=== PATIENT | female | born 1955 | race Caucasian/White ===

== ENCOUNTER 2017-01-08 15:24 | Emergency (ER) | payer MEDICAID, MEDICARE ==
[~2017-01-08] VITALS: Ht 157.5 cm; Wt 61.2 kg
[~2017-01-08 15:24] MED LIST: CEPH-37 PO; CITA-77 PO; DIVA250T51 PO; LORA2TAB89 PO; METF-372 PO; MORP30TA; NITR-52 PO; OLAN10IN PO
[2017-01-08 16:00] VITALS: BP 120/79
[2017-01-08 17:11] LABS: Basophils # (auto) 0 uL; Basophils % (auto) 0.3 % (0.0-2.0); CONDITION Y; Eosinophils # (auto) 0 uL; Eosinophils % (auto) 0.3 % (0.0-7.0); Hematocrit 36.8 % (36.0-46.0); Hemoglobin 12.5 g/dL (12.2-16.2); Lymphocytes # (auto) 1.2 uL; Lymphocytes % (auto) 18.1 % (10.0-50.0); Mean Corpuscular Hemoglobin 33.7 pg (28.0-32.0); Mean Corpuscular Hgb Conc. 33.8 g/dL (32.0-36.0); Mean Corpuscular Volume 99.7 fL (80.0-100.0); Mean Platelet Volume 9.2 fL (7.4-10.4); Monocytes # (auto) 0.3 uL; Monocytes % (auto) 3.9 % (0.0-12.0); Neutrophils # (auto) 4.9 uL; Neutrophils % (auto) 77.4 % (37.0-80.0); Platelet Count (auto) 249 10^3/uL (140-450); Red Cell Distribution Width 14.2 % (11.6-16.0); White Blood Cell 6.4 10^3/uL (4.4-10.8)
[2017-01-08 17:33] LABS: Albumin 3.5 g/dL (3.4-5.0); Anion Gap 11 (5-15); Blood Urea Nitrogen 7 mg/dL (7-18); Calcium 8.7 mg/dL (8.5-10.1); Carbon Dioxide 26 mmol/L (21-32); Chloride 101 mmol/L (98-107); GFR African American 149 mL/min; GFR Non-African American 123 mL/min; Glucose 313 mg/dL (74-106); Potassium 3.9 mmol/L (3.5-5.1); Sodium 138 mmol/L (136-145)
[2017-01-08 17:46] LABS: Alkaline Phosphatase 119 U/L (45-117); Aspartate Aminotransferase 39 U/L (15-37); Bilirubin, Total 0.5 mg/dL (0.2-1.0)
== END 2017-01-08 18:21 | disposition left against medical advice (07) ==
LOC: ER 15:29
DX: R07.89 Other chest pain (principal); Z53.21 Procedure and treatment not carried out due to patient leaving prior to being seen by health care provider
CPT/HCPCS: 36415; 71010; 80053; 84484; 85025; 93005

== ENCOUNTER 2017-01-14 10:23 | Inpatient (IN) | payer MEDICARE ==
[~2017-01-14] VITALS: Ht 152.4 cm; Wt 58.0 kg
[2017-01-14] MEDS ORDERED: SODIUM CHLORIDE 0.9% 1,000 ML IVB ONE (11:09)
[2017-01-14 11:47] LABS: Basophils # (auto) 0 uL; Basophils % (auto) 0.2 % (0.0-2.0); CONDITION Y; Eosinophils # (auto) 0 uL; Eosinophils % (auto) 0.1 % (0.0-7.0); Hematocrit 45.4 % (36.0-46.0); Hemoglobin 15.2 g/dL (12.2-16.2); Lymphocytes # (auto) 1.7 uL; Lymphocytes % (auto) 21.6 % (10.0-50.0); Mean Corpuscular Hemoglobin 33.6 pg (28.0-32.0); Mean Corpuscular Hgb Conc. 33.6 g/dL (32.0-36.0); Mean Corpuscular Volume 99.9 fL (80.0-100.0); Mean Platelet Volume 8.7 fL (7.4-10.4); Monocytes # (auto) 0.3 uL; Monocytes % (auto) 3.8 % (0.0-12.0); Neutrophils # (auto) 5.9 uL; Neutrophils % (auto) 74.3 % (37.0-80.0); Platelet Count (auto) 217 10^3/uL (140-450); Red Cell Distribution Width 13.8 % (11.6-16.0); White Blood Cell 7.9 10^3/uL (4.4-10.8)
[2017-01-14 12:11] LABS: INR 1.01 (0.9-1.15); Partial Thromboplastin Time 26.1 sec (22.64-33.71)
[2017-01-14 12:13] LABS: Albumin 3.8 g/dL (3.4-5.0); Alkaline Phosphatase 114 U/L (45-117); Anion Gap 12 (5-15); Aspartate Aminotransferase 26 U/L (15-37); BUN/Creatinine Ratio 15.7; Bilirubin, Total 0.9 mg/dL (0.2-1.0); Blood Urea Nitrogen 8 mg/dL (7-18); Calcium 8.9 mg/dL (8.5-10.1); Carbon Dioxide 24 mmol/L (21-32); Chloride 100 mmol/L (98-107); GFR African American 159 mL/min; GFR Non-African American 131 mL/min; Glucose 242 mg/dL (74-106); Magnesium 1.8 mg/dL (1.6-2.6); Sodium 136 mmol/L (136-145); Total Protein 9.3 g/dL (6.4-8.2)
[2017-01-14 12:20] LABS: Potassium 2.8 mmol/L (3.5-5.1)
[2017-01-14] MEDS ORDERED: POTASSIUM CHL 20 Meq TABLET PO ONE ×3 (13:00→14:30)
[2017-01-14] MEDS ORDERED: ONDANSETRON HCL 4 MG/2 ML VIAL IV PRN (14:15)
[2017-01-14] MEDS ORDERED: MORPHINE SULF INJ 2 MG/ML SYRINGE 1ML IV PRN (14:15)
[2017-01-14] MEDS ORDERED: cefTRIAXone 1GM/50ML D5W 50 ML IV ONE (14:15)
[2017-01-14] MEDS ORDERED: NITROGLYCERIN 0.4 MG SL TAB SL PRN (14:15)
[2017-01-14] MEDS: SODIUM CHLORIDE 0.9% 1,000 ML IV SCH (14:23)
[2017-01-14] MEDS ORDERED: DEXTROSE (50%) 50ML SYRG IV PRN (14:30)
[2017-01-14] MEDS ORDERED: MULTIPLE VITAMINS W/ MINERALS TAB PO ONE (14:30)
[2017-01-14] MEDS: HYDROcodone-ACET 5/325MG TAB PO PRN ×2 (14:57→20:12)
[2017-01-14] MEDS: ACCU-CHEK COMFORT CURVE STRIP VI SCH ×2 (17:15→22:06)
[2017-01-14] MEDS: InsuLIN REG 1unit/0.01ml Soln (100units/ml) SC SCH ×2 (17:15→21:46)
[2017-01-14 20:30] VITALS: BP 155/90
[2017-01-14] MEDS: LORazepam 0.5 MG TAB PO PRN (21:28)
[2017-01-14] MEDS: INSULIN DETEMIR(LEVEMIR) 1unit/0.01ml Soln (100units/ml) SC SCH (21:47)
[2017-01-14 23:06] VITALS: BP 155/90
[2017-01-15] VITALS (7 sets, daily range): BP systolic 125–146; BP diastolic 74–95
[2017-01-15] MEDS ORDERED: INSLISPI SC (01:11)
[2017-01-15] MEDS ORDERED: INSLANTI SC (01:11)
[2017-01-15] MEDS ORDERED: TEMA30CA5 PO (01:11)
[2017-01-15] MEDS ORDERED: LAMO25TA2 PO (01:11)
[2017-01-15] MEDS: HYDROcodone-ACET 5/325MG TAB PO PRN ×3 (01:30→20:21)
[2017-01-15 05:45] LABS: BUN/Creatinine Ratio 16.7; Calcium 7.9 mg/dL (8.5-10.1); Magnesium 1.6 mg/dL (1.6-2.6); Potassium 3.5 mmol/L (3.5-5.1)
[2017-01-15] MEDS: ACCU-CHEK COMFORT CURVE STRIP VI SCH ×4 (06:18→23:50)
[2017-01-15] MEDS: InsuLIN REG 1unit/0.01ml Soln (100units/ml) SC SCH ×4 (06:24→23:49)
[2017-01-15] MEDS: INSULIN DETEMIR(LEVEMIR) 1unit/0.01ml Soln (100units/ml) SC SCH ×2 (06:25→23:50)
[2017-01-15] MEDS: SODIUM CHLORIDE 0.9% 1,000 ML IV SCH (06:55)
[2017-01-15 08:31] LABS: Urine Bilirubin Negative (Negative); Urine Blood 3+ /uL (Negative); Urine Color Yellow (Yellow); Urine Glucose Normal (Normal); Urine Ketone Negative (Negative); Urine Mucus FEW (None Seen); Urine Nitrite Negative (Negative); Urine RBC 313 /hpf (0 - 4); Urine Squamous Epithelial Cell FEW /hpf (<5); Urine Urobilinogen Normal (Negative); Urine WBC Clumps PRESENT /hpf (None Seen); Urine pH 7.5 (5.0-8.0)
[2017-01-15] MEDS: OLANZapine 5 MG TAB PO SCH (09:45)
[2017-01-15] MEDS: CITALOPRAM HYDROBR 20 MG TAB PO SCH (09:45)
[2017-01-15] MEDS: cefTRIAXone 1GM/50ML D5W 50 ML IV SCH (09:45)
[2017-01-15] MEDS: MULTIPLE VITAMINS W/ MINERALS TAB PO SCH (09:45)
[2017-01-15] MEDS ORDERED: KETOROLAC TROMETH 30 MG/ML 1ML VIAL IV ONE (12:15)
[2017-01-15] MEDS: MAGNESIUM SULFATE 1GM/100ML 100 ML IV SCH ×2 (13:03→14:21)
[2017-01-15] MEDS: LORazepam 0.5 MG TAB PO PRN (21:25)
[2017-01-15] MEDS: MORPHINE SULF INJ 2 MG/ML SYRINGE 1ML IV PRN (22:08)
[2017-01-16] MEDS: MORPHINE SULF INJ 2 MG/ML SYRINGE 1ML IV PRN ×2 (04:17→10:33)
[2017-01-16] MEDS: SODIUM CHLORIDE 0.9% 1,000 ML IV SCH ×2 (04:18→16:15)
[2017-01-16 05:00] VITALS: BP 128/85
[2017-01-16] MEDS: InsuLIN REG 1unit/0.01ml Soln (100units/ml) SC SCH ×4 (06:40→21:39)
[2017-01-16] MEDS: INSULIN DETEMIR(LEVEMIR) 1unit/0.01ml Soln (100units/ml) SC SCH ×2 (06:41→21:38)
[2017-01-16] MEDS: ACCU-CHEK COMFORT CURVE STRIP VI SCH ×4 (07:27→21:38)
[2017-01-16 09:00] VITALS: BP 125/82
[2017-01-16] MEDS: cefTRIAXone 1GM/50ML D5W 50 ML IV SCH (10:11)
[2017-01-16] MEDS: MULTIPLE VITAMINS W/ MINERALS TAB PO SCH (10:12)
[2017-01-16] MEDS: CITALOPRAM HYDROBR 20 MG TAB PO SCH (10:12)
[2017-01-16] MEDS: OLANZapine 5 MG TAB PO SCH (10:12)
[2017-01-16 12:54] VITALS: BP 145/91
[2017-01-16] MEDS: LORazepam 0.5 MG TAB PO PRN (16:13)
[2017-01-16 22:00] VITALS: BP 152/83
[2017-01-17] MEDS: MORPHINE SULF INJ 2 MG/ML SYRINGE 1ML IV PRN ×2 (01:22→09:16)
[2017-01-17 05:36] VITALS: BP 158/87
[2017-01-17] MEDS: HYDROcodone-ACET 5/325MG TAB PO PRN ×2 (05:58→15:19)
[2017-01-17] MEDS: ACCU-CHEK COMFORT CURVE STRIP VI SCH ×3 (06:45→17:00)
[2017-01-17] MEDS: INSULIN DETEMIR(LEVEMIR) 1unit/0.01ml Soln (100units/ml) SC SCH (07:25)
[2017-01-17] MEDS: InsuLIN REG 1unit/0.01ml Soln (100units/ml) SC SCH ×3 (07:26→17:00)
[2017-01-17 09:00] VITALS: BP 153/88
[2017-01-17] MEDS: CITALOPRAM HYDROBR 20 MG TAB PO SCH (09:16)
[2017-01-17] MEDS: cefTRIAXone 1GM/50ML D5W 50 ML IV SCH (09:16)
[2017-01-17] MEDS: OLANZapine 5 MG TAB PO SCH (09:16)
[2017-01-17] MEDS: MULTIPLE VITAMINS W/ MINERALS TAB PO SCH (09:16)
[2017-01-17] MEDS: SODIUM CHLORIDE 0.9% 1,000 ML IV SCH (09:19)
[2017-01-17] MEDS: LORazepam 0.5 MG TAB PO PRN (11:42)
[2017-01-17 12:25] VITALS: BP 139/78
== END 2017-01-17 17:38 | DRG 638 ==
LOC: ER 10:23 → EDBD 10:23 → TELE 10:24 → TELE-WESTW 20:22 → WEST WING 01-15 15:48
PROVIDERS: ADMIT Internal Medicine; ATTEND Internal Medicine
DX: E11.65 Type 2 diabetes mellitus with hyperglycemia (principal); N39.0 Urinary tract infection, site not specified; N32.1 Vesicointestinal fistula; I10 Essential (primary) hypertension; E87.6 Hypokalemia; F14.10 Cocaine abuse, uncomplicated; J44.9 Chronic obstructive pulmonary disease, unspecified; F17.210 Nicotine dependence, cigarettes, uncomplicated; F20.9 Schizophrenia, unspecified; F31.9 Bipolar disorder, unspecified; M17.11 Unilateral primary osteoarthritis, right knee; F15.10 Other stimulant abuse, uncomplicated; Z90.49 Acquired absence of other specified parts of digestive tract; Z59.0 Homelessness; Z93.3 Colostomy status; Z80.9 Family history of malignant neoplasm, unspecified
CPT/HCPCS: 36415; 71010; 73560; 74176; 80048; 80053; 80307; 81001; 82962; 83036; 83605; 83735; 84484; 85025; 85610; 85730; 87040; 87081; 87086; 93005; 94761; 96361; 96365; 97163; J0696; J1815; J1885

== ENCOUNTER 2017-01-28 14:59 | Emergency (ER) | payer MEDICARE, MEDICAID ==
[~2017-01-28] VITALS: Ht 157.5 cm; Wt 68.0 kg
[~2017-01-28 14:59] MED LIST changes: -CEPH-37 PO; -DIVA250T51 PO; +INSLANTI SC; +INSLISPI SC; +LAMO25TA2 PO; -METF-372 PO; -MORP30TA; -NITR-52 PO; +TEMA30CA5 PO
[2017-01-28 16:00] LABS: Basophils # (auto) 0 uL; Basophils % (auto) 0.4 % (0.0-2.0); Eosinophils # (auto) 0.1 uL; Eosinophils % (auto) 1.2 % (0.0-7.0); Hematocrit 33.9 % (36.0-46.0); Hemoglobin 11.3 g/dL (12.2-16.2); Lymphocytes # (auto) 1.4 uL; Lymphocytes % (auto) 28.1 % (10.0-50.0); Mean Corpuscular Hemoglobin 33.7 pg (28.0-32.0); Mean Corpuscular Hgb Conc. 33.3 g/dL (32.0-36.0); Mean Platelet Volume 8.6 fL (6.9-10.8); Monocytes # (auto) 0.4 uL; Monocytes % (auto) 8.1 % (0.0-12.0); Neutrophils # (auto) 3.1 uL; Neutrophils % (auto) 62.2 % (37.0-80.0); Nucleated Red Blood Cells % 0.1 %; Platelet Count (auto) 204 10^3/uL (140-450); Red Cell Distribution Width 13.8 % (11.8-14.3); White Blood Cell 4.9 10^3/uL (4.4-10.8)
[2017-01-28 16:12] LABS: Albumin 2.9 g/dL (3.4-5.0); Anion Gap 8 (5-15); Blood Urea Nitrogen 9 mg/dL (7-18); Calcium 8.7 mg/dL (8.5-10.1); Carbon Dioxide 28 mmol/L (21-32); Chloride 99 mmol/L (98-107); Glucose 320 mg/dL (74-106); Potassium 4.6 mmol/L (3.5-5.1); Sodium 135 mmol/L (136-145)
[2017-01-28 16:13] LABS: Acetaminophen < 2.0 ug/mL (10-30); Salicylate 2.1 mg/dL (2.8-20.0)
[2017-01-28 16:15] LABS: Aspartate Aminotransferase 35 U/L (15-37); BUN/Creatinine Ratio 15.5; GFR African American 137 mL/min; GFR Non-African American 113 mL/min
[2017-01-28 16:24] VITALS: BP 120/74
[2017-01-28 16:30] LABS: Alkaline Phosphatase 199 U/L (45-117); Bilirubin, Total 0.2 mg/dL (0.2-1.0); Total Protein 7.4 g/dL (6.4-8.2)
== END 2017-01-28 16:59 | disposition home or self-care (01) ==
LOC: ER 14:59 → EDBD 14:59 → ER 16:59
DX: E11.65 Type 2 diabetes mellitus with hyperglycemia (principal); M19.90 Unspecified osteoarthritis, unspecified site; I10 Essential (primary) hypertension; F17.210 Nicotine dependence, cigarettes, uncomplicated; Z59.0 Homelessness; Z90.49 Acquired absence of other specified parts of digestive tract
CPT/HCPCS: 36415; 73562; 80053; 80320; 80329; 84484; 85025; 93005

== ENCOUNTER 2017-01-28 23:30 | Emergency (ER) | payer MEDICAID, MEDICARE ==
[~2017-01-28] VITALS: Ht 152.4 cm; Wt 59.0 kg
[2017-01-29 03:40] VITALS: BP 130/70
[2017-01-29] MEDS ORDERED: IBUPROFEN 600 MG TAB PO ONE (04:15)
== END 2017-01-29 04:24 | disposition home or self-care (01) ==
LOC: ER 23:32
DX: S80.12XA Contusion of left lower leg, initial encounter (principal); F17.210 Nicotine dependence, cigarettes, uncomplicated; Z59.0 Homelessness; M19.90 Unspecified osteoarthritis, unspecified site; E11.9 Type 2 diabetes mellitus without complications; Z79.899 Other long term (current) drug therapy; Z90.49 Acquired absence of other specified parts of digestive tract; W05.0XXA Fall from non-moving wheelchair, initial encounter; Y93.89 Activity, other specified; Y92.89 Other specified places as the place of occurrence of the external cause; Y99.8 Other external cause status

== ENCOUNTER 2017-01-29 17:46 | Emergency (ER) | payer MEDICARE ==
[~2017-01-29] VITALS: Ht 152.4 cm; Wt 65.8 kg
[2017-01-29 17:53] VITALS: BP 126/75
== END 2017-01-30 01:45 | disposition left against medical advice (07) ==
LOC: ER 17:46 → EDBD 17:46 → ER 01-30 01:45
DX: R73.9 Hyperglycemia, unspecified (principal); Z53.21 Procedure and treatment not carried out due to patient leaving prior to being seen by health care provider

== ENCOUNTER 2017-02-25 21:34 | Emergency (ER) | payer MEDICARE ==
[~2017-02-25] VITALS: Ht 167.6 cm; Wt 68.0 kg
[2017-02-25 21:53] VITALS: BP 114/69
[2017-02-25 22:51] LABS: Basophils # (auto) 0 uL; Basophils % (auto) 0.3 % (0.0-2.0); Eosinophils # (auto) 0.1 uL; Eosinophils % (auto) 1.7 % (0.0-7.0); Hematocrit 34.6 % (36.0-46.0); Hemoglobin 11.7 g/dL (12.2-16.2); Lymphocytes # (auto) 2.1 uL; Lymphocytes % (auto) 42.2 % (10.0-50.0); Mean Corpuscular Hemoglobin 32.8 pg (28.0-32.0); Mean Corpuscular Hgb Conc. 33.9 g/dL (32.0-36.0); Mean Corpuscular Volume 96.5 fL (80.0-100.0); Mean Platelet Volume 7.1 fL (6.9-10.8); Monocytes # (auto) 0.4 uL; Monocytes % (auto) 7.6 % (0.0-12.0); Neutrophils # (auto) 2.4 uL; Neutrophils % (auto) 48.2 % (37.0-80.0); Nucleated Red Blood Cells % 0.1 %; Platelet Count (auto) 188 10^3/uL (140-450); Red Cell Distribution Width 13.6 % (11.8-14.3); White Blood Cell 5.1 10^3/uL (4.4-10.8)
[2017-02-25 23:10] LABS: Albumin 3.3 g/dL (3.4-5.0); Anion Gap 8 (5-15); Aspartate Aminotransferase 25 U/L (15-37); BUN/Creatinine Ratio 33.3; Blood Urea Nitrogen 19 mg/dL (7-18); Calcium 8.2 mg/dL (8.5-10.1); Carbon Dioxide 26 mmol/L (21-32); Chloride 107 mmol/L (98-107); GFR African American 140 mL/min; GFR Non-African American 115 mL/min; Glucose 140 mg/dL (74-106); Magnesium 1.9 mg/dL (1.6-2.6); Potassium 3.7 mmol/L (3.5-5.1); Sodium 141 mmol/L (136-145)
[2017-02-25 23:16] LABS: Alkaline Phosphatase 101 U/L (45-117); Bilirubin, Total 0.4 mg/dL (0.2-1.0); Total Protein 7.5 g/dL (6.4-8.2)
[2017-02-25 23:20] LABS: INR 1.04 (0.9-1.15); Partial Thromboplastin Time 27.6 sec (22.64-33.71); Prothrombin Time 11.3 sec (9.37-12.3)
[2017-02-25 23:31] LABS: B-Type Natriuretic Peptide 42.01 pg/mL (0-100); Temperature: 24.6 C (20.0-25.0)
== END 2017-02-25 23:28 | disposition home or self-care (01) ==
LOC: EDBD 21:34 → ER 21:43
DX: G89.4 Chronic pain syndrome (principal); M19.90 Unspecified osteoarthritis, unspecified site; E11.9 Type 2 diabetes mellitus without complications; F17.210 Nicotine dependence, cigarettes, uncomplicated; F12.10 Cannabis abuse, uncomplicated; F11.20 Opioid dependence, uncomplicated; Z59.0 Homelessness; Z90.49 Acquired absence of other specified parts of digestive tract; Z79.4 Long term (current) use of insulin
CPT/HCPCS: 36415; 71010; 80053; 82962; 83735; 83880; 84443; 84484; 85025; 85610; 85730; 93005

== ENCOUNTER 2021-01-29 13:58 | Emergency (ER) | payer MEDICARE, MEDICAID ==
[~2021-01-29] VITALS: Ht 152.4 cm; Wt 68.0 kg
[2021-01-29 14:01] VITALS: BP 120/72
[2021-01-29] MEDS ORDERED: FUROSEMIDE 40 MG TAB PO ONE (14:30)
[2021-01-29 14:48] LABS: Basophils # (auto) 0 10 ^3/uL (0-0.2); Basophils % (auto) 0.7 % (0.0-2.0); Eosinophils # (auto) 0 10 ^3/uL (0-0.8); Eosinophils % (auto) 0.8 % (0.0-7.0); Hematocrit 35.5 % (36.0-46.0); Hemoglobin 12.4 g/dL (12.2-16.2); Lymphocytes # (auto) 1.1 10 ^3/uL (0.4-5.4); Lymphocytes % (auto) 21.3 % (10.0-50.0); Mean Corpuscular Hemoglobin 34.9 pg (28.0-32.0); Mean Corpuscular Volume 99.8 fL (80.0-100.0); Monocytes # (auto) 0.5 10 ^3/uL (0-1.3); Monocytes % (auto) 8.9 % (0.0-12.0); Neutrophils # (auto) 3.5 10 ^3/uL (1.6-8.6); Neutrophils % (auto) 68.3 % (37.0-80.0); Nucleated Red Blood Cells % 0.3 %; Red Blood Cells 3.56 10^6/uL (4.0-5.20); Red Cell Distribution Width 14.1 % (11.8-14.3); White Blood Cell 5.1 10^3/uL (4.4-10.8)
[2021-01-29 15:03] LABS: Albumin 2.8 g/dL (3.4-5.0); Anion Gap 6 (5-15); Blood Urea Nitrogen 13 mg/dL (7-18); Calcium 8.1 mg/dL (8.5-10.1); Carbon Dioxide 26 mmol/L (21-32); Chloride 98 mmol/L (98-107); Glucose 385 mg/dL (74-106); Sodium 130 mmol/L (136-145)
[2021-01-29 15:11] LABS: Alanine Aminotransferase 33 U/L (13-56); Alkaline Phosphatase 132 U/L (45-117); Aspartate Aminotransferase 33 U/L (15-37); BUN/Creatinine Ratio 17.1; Bilirubin, Total 0.7 mg/dL (0.2-1.0); GFR African American 99 mL/min; GFR Non-African American 82 mL/min; Total Protein 8.4 g/dL (6.4-8.2)
[2021-01-29] MEDS ORDERED: InsuLIN REG 1unit/0.01ml Soln (100units/ml) SC ONE (16:30)
== END 2021-01-29 23:49 | disposition left against medical advice (07) ==
LOC: ER 13:58
DX: I11.0 Hypertensive heart disease with heart failure (principal); I50.9 Heart failure, unspecified; E11.65 Type 2 diabetes mellitus with hyperglycemia; R51.9 Headache, unspecified; F41.9 Anxiety disorder, unspecified; F32.9 Major depressive disorder, single episode, unspecified; F20.9 Schizophrenia, unspecified; F17.210 Nicotine dependence, cigarettes, uncomplicated; Z90.49 Acquired absence of other specified parts of digestive tract; Z93.3 Colostomy status; Z79.4 Long term (current) use of insulin; Z79.899 Other long term (current) drug therapy
CPT/HCPCS: 36415; 70450; 70486; 71045; 80053; 83880; 84484; 85025

== ENCOUNTER 2021-03-13 08:43 | Emergency (ER) | payer MEDICARE, MEDICAID ==
[~2021-03-13] VITALS: Ht 152.4 cm; Wt 68.0 kg
[2021-03-13 09:11] VITALS: BP 152/95
== END 2021-03-13 13:39 | disposition left against medical advice (07) ==
LOC: EDBD 08:43 → ER 08:43
DX: K74.60 Unspecified cirrhosis of liver (principal); F17.210 Nicotine dependence, cigarettes, uncomplicated; F12.10 Cannabis abuse, uncomplicated; E11.9 Type 2 diabetes mellitus without complications; I10 Essential (primary) hypertension; Z90.49 Acquired absence of other specified parts of digestive tract
CPT/HCPCS: 71045; 74176; 93005

== ENCOUNTER 2021-09-18 13:36 | Inpatient (IN) | payer MEDICARE, MEDICAID ==
[~2021-09-18] VITALS: Ht 152.4 cm; Wt 68.1 kg
[2021-09-18] MEDS: INSULIN LANTUS (GLARGINE) 1 /0.01ml (100units/ml) SC SCH (00:20)
[2021-09-18 18:13] LABS: Basophils # (auto) 0 10 ^3/uL (0-0.2); Eosinophils # (auto) 0.2 10 ^3/uL (0-0.8); Eosinophils % (auto) 4.4 % (0.0-7.0); Hematocrit 36.7 % (36.0-46.0); Hemoglobin 13.1 g/dL (12.2-16.2); Lymphocytes # (auto) 0.8 10 ^3/uL (0.4-5.4); Mean Corpuscular Hemoglobin 33.8 pg (28.0-32.0); Mean Corpuscular Hgb Conc. 35.7 g/dL (32.0-36.0); Mean Corpuscular Volume 94.7 fL (80.0-100.0); Monocytes # (auto) 0.2 10 ^3/uL (0-1.3); Monocytes % (auto) 5.7 % (0.0-12.0); Neutrophils % (auto) 70.9 % (37.0-80.0); Nucleated Red Blood Cells % 0.2 %; Red Blood Cells 3.87 10^6/uL (4.0-5.20); Red Cell Distribution Width 14.3 % (11.8-14.3); White Blood Cell 4.2 10^3/uL (4.4-10.8)
[2021-09-18 18:21] LABS: Albumin 3.1 g/dL (3.4-5.0); Calcium 8.5 mg/dL (8.5-10.1); Potassium 4.3 mmol/L (3.5-5.1)
[2021-09-18 18:23] LABS: BUN/Creatinine Ratio 11.5
[2021-09-18 18:33] LABS: Bilirubin, Total 0.6 mg/dL (0.2-1.0); Total Protein 8.8 g/dL (6.4-8.2)
[2021-09-18] MEDS ORDERED: DEXTROSE (50%) 50ML SYRG IV PRN (18:45)
[2021-09-18] MEDS ORDERED: NICOTINE 21MG/24 HR TOPICAL PATCH TD ONE (18:45)
[2021-09-18] MEDS ORDERED: MORPHINE SULFATE INJ 2 MG/ml SYRG IV PRN (18:45)
[2021-09-18] MEDS ORDERED: ONDANSETRON HCL 4 MG/2 ML VIAL IV PRN (18:45)
[2021-09-18 20:14] LABS: Urine Bacteria FEW /hpf (None Seen); Urine Blood Negative /uL (Negative); Urine Hyaline Cast FEW /lpf (0 - 2); Urine Specific Gravity 1.039 (1.001-1.035); Urine WBC <1 /hpf (0 - 5)
[2021-09-18 20:29] LABS: Amphetamine Screen, Urine NEGATIVE (NEGATIVE); Barbiturate Scree,Urine NEGATIVE (NEGATIVE); Benzodiazephine Screen, Urine NEGATIVE (NEGATIVE); Cannabinoid Screen, Urine POSITIVE (NEGATIVE); Cocaine Screen, Urine NEGATIVE (NEGATIVE); Phencyclidine Screen, Urine NEGATIVE (NEGATIVE)
[2021-09-18 20:36] LABS: Opiate Scree,Urine NEGATIVE (NEGATIVE)
[2021-09-19] MEDS: InsuLIN REG 1unit/0.01ml Soln (100units/ml) SC SCH ×4 (00:25→18:00)
[2021-09-19] MEDS: ACCU-CHEK COMFORT CURVE STRIP VI SCH ×4 (02:21→18:00)
[2021-09-19] MEDS ORDERED: TEMAZEPAM 15 MG CAP PO ONE ×2 (03:00→20:45)
[2021-09-19 05:00] VITALS: BP 117/84
[2021-09-19 06:13] LABS: Basophils # (auto) 0 10 ^3/uL (0-0.2); Basophils % (auto) 0.3 % (0.0-2.0); Eosinophils # (auto) 0.1 10 ^3/uL (0-0.8); Eosinophils % (auto) 1.5 % (0.0-7.0); Hematocrit 34.9 % (36.0-46.0); Hemoglobin 12.3 g/dL (12.2-16.2); Lymphocytes % (auto) 29.5 % (10.0-50.0); Mean Corpuscular Hemoglobin 32.9 pg (28.0-32.0); Mean Corpuscular Hgb Conc. 35.3 g/dL (32.0-36.0); Monocytes # (auto) 0.4 10 ^3/uL (0-1.3); Monocytes % (auto) 10.3 % (0.0-12.0); Neutrophils # (auto) 2.1 10 ^3/uL (1.6-8.6); Neutrophils % (auto) 58.4 % (37.0-80.0); Nucleated Red Blood Cells % 0.1 %; Red Blood Cells 3.75 10^6/uL (4.0-5.20); White Blood Cell 3.5 10^3/uL (4.4-10.8)
[2021-09-19 06:27] LABS: Albumin 2.8 g/dL (3.4-5.0); Calcium 8.6 mg/dL (8.5-10.1); Potassium 3.7 mmol/L (3.5-5.1)
[2021-09-19 06:31] LABS: BUN/Creatinine Ratio 18.2; Bilirubin, Total 0.6 mg/dL (0.2-1.0); Total Protein 8.2 g/dL (6.4-8.2)
[2021-09-19] MEDS: INSULIN LANTUS (GLARGINE) 1 /0.01ml (100units/ml) SC SCH ×2 (07:03→22:38)
[2021-09-19 09:00] VITALS: BP 115/84
[2021-09-19] MEDS: NICOTINE 21MG/24 HR TOPICAL PATCH TD SCH (10:00)
[2021-09-19] MEDS: LORazepam 0.5 MG TAB PO PRN ×2 (13:19→21:31)
[2021-09-19 22:00] VITALS: BP 113/72
[2021-09-20 05:15] VITALS: BP 116/69
[2021-09-20 05:46] LABS: Basophils # (auto) 0 10 ^3/uL (0-0.2); Basophils % (auto) 0.7 % (0.0-2.0); Eosinophils # (auto) 0.1 10 ^3/uL (0-0.8); Eosinophils % (auto) 1.5 % (0.0-7.0); Hematocrit 37.7 % (36.0-46.0); Hemoglobin 13.5 g/dL (12.2-16.2); Lymphocytes # (auto) 1.1 10 ^3/uL (0.4-5.4); Lymphocytes % (auto) 30.1 % (10.0-50.0); Mean Corpuscular Hemoglobin 33.3 pg (28.0-32.0); Mean Corpuscular Hgb Conc. 35.8 g/dL (32.0-36.0); Monocytes # (auto) 0.3 10 ^3/uL (0-1.3); Monocytes % (auto) 8.3 % (0.0-12.0); Neutrophils # (auto) 2.3 10 ^3/uL (1.6-8.6); Neutrophils % (auto) 59.4 % (37.0-80.0); Nucleated Red Blood Cells % 0.3 %; Red Blood Cells 4.05 10^6/uL (4.0-5.20); White Blood Cell 3.8 10^3/uL (4.4-10.8)
[2021-09-20 06:00] LABS: BUN/Creatinine Ratio 16.2; Calcium 9.4 mg/dL (8.5-10.1); Magnesium 1.7 mg/dL (1.6-2.6)
[2021-09-20] MEDS: ACCU-CHEK COMFORT CURVE STRIP VI SCH ×5 (06:27→23:53)
[2021-09-20] MEDS: INSULIN LANTUS (GLARGINE) 1 /0.01ml (100units/ml) SC SCH ×2 (06:32→23:53)
[2021-09-20] MEDS: InsuLIN REG 1unit/0.01ml Soln (100units/ml) SC SCH ×5 (06:32→23:53)
[2021-09-20] MEDS: LORazepam 0.5 MG TAB PO PRN ×2 (06:33→14:39)
[2021-09-20 09:00] VITALS: BP 110/71
[2021-09-20] MEDS: NICOTINE 21MG/24 HR TOPICAL PATCH TD SCH (10:00)
[2021-09-20] MEDS ORDERED: ERGOCALCIFEROL 50,000 UNIT(1.25MG) CAP PO SCH (10:45)
[2021-09-20] MEDS: HALOPERIDOL LACTATE 5 MG/ML INJ VIAL IM PRN ×2 (12:05→21:10)
[2021-09-20 17:00] VITALS: BP 114/58
[2021-09-20 22:00] VITALS: BP 128/89
[2021-09-21 05:00] VITALS: BP 108/65
[2021-09-21] MEDS: ACCU-CHEK COMFORT CURVE STRIP VI SCH ×3 (06:28→18:03)
[2021-09-21] MEDS: InsuLIN REG 1unit/0.01ml Soln (100units/ml) SC SCH ×3 (06:35→18:04)
[2021-09-21] MEDS: INSULIN LANTUS (GLARGINE) 1 /0.01ml (100units/ml) SC SCH ×2 (06:36→22:00)
[2021-09-21] MEDS ORDERED: TEMAZEPAM 15 MG CAP PO PRN (09:15)
[2021-09-21] MEDS: LORazepam 0.5 MG TAB PO SCH ×2 (09:26→22:00)
[2021-09-21] MEDS: OLANZapine 5 MG TAB PO SCH (09:26)
[2021-09-21] MEDS: lamoTRIgine 25 MG TAB PO SCH (09:27)
[2021-09-21] MEDS: NICOTINE 21MG/24 HR TOPICAL PATCH TD SCH (10:00)
[2021-09-21] MEDS: HALOPERIDOL LACTATE 5 MG/ML INJ VIAL IM PRN ×2 (12:02→21:23)
[2021-09-21 13:00] VITALS: BP 125/75
[2021-09-21 16:48] VITALS: BP 113/74
[2021-09-22] MEDS: ACCU-CHEK COMFORT CURVE STRIP VI SCH ×3 (00:30→12:13)
[2021-09-22] MEDS: InsuLIN REG 1unit/0.01ml Soln (100units/ml) SC SCH ×3 (00:30→12:14)
[2021-09-22 05:00] VITALS: BP 155/68
[2021-09-22] MEDS: HALOPERIDOL LACTATE 5 MG/ML INJ VIAL IM PRN (05:10)
[2021-09-22] MEDS: INSULIN LANTUS (GLARGINE) 1 /0.01ml (100units/ml) SC SCH (06:31)
[2021-09-22] MEDS: NICOTINE 21MG/24 HR TOPICAL PATCH TD SCH (09:29)
[2021-09-22] MEDS: LORazepam 0.5 MG TAB PO SCH (09:30)
[2021-09-22] MEDS: OLANZapine 5 MG TAB PO SCH (09:30)
[2021-09-22] MEDS: lamoTRIgine 25 MG TAB PO SCH (09:30)
[2021-09-22 09:47] VITALS: BP 119/76
== END 2021-09-22 14:00 | disposition home or self-care (01) | DRG 948 ==
LOC: ER 13:36 → OVERFLOW 18:44 → WEST WING 23:00
PROVIDERS: ADMIT Registered Nurse; ATTEND Internal Medicine
DX: R53.1 Weakness (principal); R62.7 Adult failure to thrive; E11.9 Type 2 diabetes mellitus without complications; F12.90 Cannabis use, unspecified, uncomplicated; F20.9 Schizophrenia, unspecified; I10 Essential (primary) hypertension; F11.90 Opioid use, unspecified, uncomplicated; Z66 Do not resuscitate; F10.10 Alcohol abuse, uncomplicated; Y90.0 Blood alcohol level of less than 20 mg/100 ml; Z20.822 Contact with and (suspected) exposure to COVID-19; R56.9 Unspecified convulsions; M19.90 Unspecified osteoarthritis, unspecified site; Z59.00 Homelessness unspecified; Z79.4 Long term (current) use of insulin; Z86.73 Personal history of transient ischemic attack (TIA), and cerebral infarction without residual deficits; Z89.611 Acquired absence of right leg above knee; Z93.3 Colostomy status; Z99.3 Dependence on wheelchair; Z90.49 Acquired absence of other specified parts of digestive tract; Z71.6 Tobacco abuse counseling; Z72.0 Tobacco use
CPT/HCPCS: 36415; 71045; 80048; 80053; 80307; 80320; 81001; 82306; 82962; 83036; 83735; 84439; 84443; 85025; 96372; 97163; G0378; J1815

== ENCOUNTER 2021-12-08 20:04 | Emergency (ER) | payer MEDICARE, MEDICAID ==
[~2021-12-08] VITALS: Ht 152.4 cm; Wt 68.2 kg
[2021-12-08 20:05] VITALS: BP 142/97
[2021-12-08 21:18] LABS: Basophils # (auto) 0.1 10 ^3/uL (0-0.2); Basophils % (auto) 0.9 % (0.0-2.0); Eosinophils # (auto) 0 10 ^3/uL (0-0.8); Eosinophils % (auto) 0.7 % (0.0-7.0); Hematocrit 40.6 % (36.0-46.0); Hemoglobin 13.8 g/dL (12.2-16.2); Lymphocytes # (auto) 0.9 10 ^3/uL (0.4-5.4); Lymphocytes % (auto) 12.7 % (10.0-50.0); Mean Corpuscular Hemoglobin 32.6 pg (28.0-32.0); Mean Corpuscular Hgb Conc. 33.9 g/dL (32.0-36.0); Mean Corpuscular Volume 96.3 fL (80.0-100.0); Monocytes # (auto) 0.4 10 ^3/uL (0-1.3); Monocytes % (auto) 5.6 % (0.0-12.0); Neutrophils # (auto) 5.9 10 ^3/uL (1.6-8.6); Neutrophils % (auto) 80.1 % (37.0-80.0); Nucleated Red Blood Cells % 0.2 %; Red Blood Cells 4.22 10^6/uL (4.0-5.20); Red Cell Distribution Width 14.7 % (11.8-14.3); White Blood Cell 7.4 10^3/uL (4.4-10.8)
[2021-12-08 21:38] LABS: BUN/Creatinine Ratio 18.8; Calcium 9.5 mg/dL (8.5-10.1); Potassium 4.1 mmol/L (3.5-5.1)
[2021-12-08 21:41] LABS: Bilirubin, Total 0.8 mg/dL (0.2-1.0); Total Protein 10.3 g/dL (6.4-8.2)
[2021-12-09 06:06] LABS: Urine Bacteria FEW /hpf (None Seen); Urine Blood Negative /uL (Negative); Urine Hyaline Cast FEW /lpf (0 - 2); Urine Mucus FEW (None Seen); Urine Specific Gravity 1.012 (1.001-1.035); Urine WBC 5 /hpf (0 - 5)
[2021-12-09] MEDS ORDERED: CALCIUM GLUC 1,000mg/50ml-NS 50 ML IV ONE (10:03)
== END 2021-12-09 01:57 | disposition home or self-care (01) ==
LOC: ER 20:04
DX: R07.89 Other chest pain (principal); N39.0 Urinary tract infection, site not specified; I10 Essential (primary) hypertension; E11.9 Type 2 diabetes mellitus without complications; F17.210 Nicotine dependence, cigarettes, uncomplicated; Z89.611 Acquired absence of right leg above knee; Z90.49 Acquired absence of other specified parts of digestive tract; Z59.00 Homelessness unspecified; Z79.4 Long term (current) use of insulin; Z79.899 Other long term (current) drug therapy; Z88.1 Allergy status to other antibiotic agents
CPT/HCPCS: 36415; 71045; 80053; 81001; 83880; 84484; 85025; 93005; 99285; J0610

== ENCOUNTER 2022-02-22 14:19 | Emergency (ER) | payer MEDICARE, MEDICAID ==
[~2022-02-22] VITALS: Ht 160 cm; Wt 82.0 kg
[2022-02-22 15:57] VITALS: BP 144/84
== END 2022-02-22 16:03 | disposition home or self-care (01) ==
LOC: ER 14:19 → EDBD 14:19 → ER 16:01
DX: M71.22 Synovial cyst of popliteal space [Baker], left knee (principal); F17.210 Nicotine dependence, cigarettes, uncomplicated; F12.10 Cannabis abuse, uncomplicated; E11.9 Type 2 diabetes mellitus without complications; Z59.00 Homelessness unspecified; Z90.49 Acquired absence of other specified parts of digestive tract
CPT/HCPCS: 36415; 80320; 93971

== ENCOUNTER → 2022-03-14 | Emergency (ER) | payer MEDICARE, MEDICAID ==
[~2022-03-14] VITALS: Ht 152.4 cm; Wt 68.2 kg
[~2022-03-14] MED LIST changes: +InsuLIN REG 1unit/0.01ml Soln (100units/ml) IV ONE
[2022-03-14 12:31] VITALS: BP 124/76
[2022-03-14 13:35] LABS: Basophils # (auto) 0 10 ^3/uL (0-0.2); Basophils % (auto) 0.2 % (0.0-2.0); Eosinophils # (auto) 0 10 ^3/uL (0-0.8); Eosinophils % (auto) 0.7 % (0.0-7.0); Hematocrit 37.5 % (36.0-46.0); Hemoglobin 12.6 g/dL (12.2-16.2); Lymphocytes # (auto) 1.1 10 ^3/uL (0.4-5.4); Lymphocytes % (auto) 30.9 % (10.0-50.0); Mean Corpuscular Hemoglobin 32.2 pg (28.0-32.0); Mean Corpuscular Hgb Conc. 33.6 g/dL (32.0-36.0); Mean Corpuscular Volume 95.9 fL (80.0-100.0); Monocytes # (auto) 0.2 10 ^3/uL (0-1.3); Monocytes % (auto) 6.2 % (0.0-12.0); Neutrophils # (auto) 2.2 10 ^3/uL (1.6-8.6); Nucleated Red Blood Cells % 0.1 %; Red Blood Cells 3.91 10^6/uL (4.0-5.20); Red Cell Distribution Width 15.7 % (11.8-14.3); White Blood Cell 3.6 10^3/uL (4.4-10.8)
[2022-03-14 13:46] LABS: Albumin 3.2 g/dL (3.4-5.0); Calcium 8.2 mg/dL (8.5-10.1); Potassium 4.2 mmol/L (3.5-5.1)
[2022-03-14 13:50] LABS: BUN/Creatinine Ratio 21.3; Bilirubin, Total 0.4 mg/dL (0.2-1.0); Total Protein 8.8 g/dL (6.4-8.2)
[2022-03-14 15:37] LABS: Urine Bacteria NONE SEEN /hpf (None Seen); Urine Blood Negative /uL (Negative); Urine Specific Gravity 1.012 (1.001-1.035); Urine WBC 4 /hpf (0 - 5)
[2022-03-15 13:31] LABS: Albumin 3.2 g/dL (3.4-5.0); Potassium 4.2 mmol/L (3.5-5.1)
[2022-03-15 13:36] LABS: BUN/Creatinine Ratio 20.8; Bilirubin, Total 0.4 mg/dL (0.2-1.0); Total Protein 9.6 g/dL (6.4-8.2)
== END | disposition home or self-care (01) ==
LOC: ER 12:03
DX: R30.0 Dysuria (principal); E11.9 Type 2 diabetes mellitus without complications; I10 Essential (primary) hypertension; F17.210 Nicotine dependence, cigarettes, uncomplicated; F12.10 Cannabis abuse, uncomplicated; Z90.49 Acquired absence of other specified parts of digestive tract; Z59.00 Homelessness unspecified; Z88.8 Allergy status to other drugs, medicaments and biological substances; Z20.822 Contact with and (suspected) exposure to COVID-19
CPT/HCPCS: 36415; 36600; 80053; 81001; 82805; 85025; 87426

== ENCOUNTER 2023-02-24 10:33 | Emergency (ER) | payer MEDICARE, MEDICAID ==
[~2023-02-24] VITALS: Ht 152.4 cm; Wt 68.2 kg
[~2023-02-24 10:33] MED LIST changes: -InsuLIN REG 1unit/0.01ml Soln (100units/ml) IV ONE
[2023-02-24] MEDS ORDERED: DEXTROSE (50%) 50ML SYRG IV ONE (11:00)
[2023-02-24 11:14] LABS: Basophils # (auto) 0 10 ^3/uL (0-0.2); Basophils % (auto) 0.4 % (0.0-2.0); Eosinophils # (auto) 0.1 10 ^3/uL (0-0.8); Eosinophils % (auto) 1.1 % (0.0-7.0); Hematocrit 32.7 % (36.0-46.0); Hemoglobin 10.8 g/dL (12.2-16.2); Lymphocytes # (auto) 1.6 10 ^3/uL (0.4-5.4); Lymphocytes % (auto) 26.1 % (10.0-50.0); Mean Corpuscular Hemoglobin 30.4 pg (28.0-32.0); Monocytes # (auto) 0.4 10 ^3/uL (0-1.3); Monocytes % (auto) 6.5 % (0.0-12.0); Neutrophils # (auto) 4.2 10 ^3/uL (1.6-8.6); Neutrophils % (auto) 65.9 % (37.0-80.0); Nucleated Red Blood Cells % 0.1 %; Red Blood Cells 3.55 10^6/uL (4.0-5.20); Red Cell Distribution Width 15.1 % (11.8-14.3); White Blood Cell 6.3 10^3/uL (4.4-10.8)
[2023-02-24] MEDS ORDERED: DEXTROSE 10% 1,000 ML IV ONE (11:15)
[2023-02-24 11:29] LABS: Alanine Aminotransferase 39 U/L (7-40); Albumin 3.7 g/dL (3.2-4.8); Alkaline Phosphatase 194 U/L (46-116); Anion Gap 6 (5-15); Aspartate Aminotransferase 51 U/L (13-40); BUN/Creatinine Ratio 28.6 (10.0-20.0); Blood Urea Nitrogen 20 mg/dL (9-23); Calcium 8.3 mg/dL (8.7-10.4); Carbon Dioxide 23 mmol/L (20-30); Chloride 105 mmol/L (98-107); Glucose 52 mg/dL (74-106); Potassium 3.8 mmol/L (3.5-5.1); Sodium 134 mmol/L (136-145)
[2023-02-24 11:30] LABS: Bilirubin, Total 0.5 mg/dL (0.2-1.0)
[2023-02-24 11:43] VITALS: PULSE 61; TEMP 97.6
[2023-02-24 15:24] LABS: Urine Bacteria NONE SEEN /hpf (None Seen); Urine Blood Negative /uL (Negative); Urine Clarity Clear (Clear); Urine Color Yellow (Yellow); Urine Protein, UAD TRACE (Negative); Urine Specific Gravity 1.018 (1.001-1.035); Urine Urobilinogen Normal (Negative); Urine WBC <1 /hpf (0 - 5)
[2023-02-24 15:30] VITALS: BP 141/73; PULSE 64; RESP 15; O2SAT 100
== END 2023-02-24 16:26 | disposition left against medical advice (07) ==
LOC: ER 10:33 → EDBD 10:33 → ER 16:26
DX: E13.649 Other specified diabetes mellitus with hypoglycemia without coma (principal); F41.9 Anxiety disorder, unspecified; F32.9 Major depressive disorder, single episode, unspecified; I10 Essential (primary) hypertension; F20.9 Schizophrenia, unspecified; F17.210 Nicotine dependence, cigarettes, uncomplicated; F12.90 Cannabis use, unspecified, uncomplicated; Z90.49 Acquired absence of other specified parts of digestive tract; Z98.890 Other specified postprocedural states; Z59.00 Homelessness unspecified; Z88.1 Allergy status to other antibiotic agents; Z88.8 Allergy status to other drugs, medicaments and biological substances; Z79.899 Other long term (current) drug therapy; Z79.84 Long term (current) use of oral hypoglycemic drugs
CPT/HCPCS: 36415; 70450; 80053; 81001; 82962; 84484; 85025; 93005; 96365; 96366; 96375

== ENCOUNTER 2023-03-08 11:55 | Emergency (ER) | payer MEDICARE, MEDICAID ==
[~2023-03-08] VITALS: Ht 152.4 cm; Wt 63.8 kg
[2023-03-08 12:07] VITALS: BP 129/49; PULSE 84; RESP 18; O2SAT 95
[2023-03-08] MEDS ORDERED: CLIN150C PO (13:16)
== END 2023-03-08 17:16 | disposition left against medical advice (07) ==
LOC: ER 11:55
DX: L03.116 Cellulitis of left lower limb (principal); E11.9 Type 2 diabetes mellitus without complications; I10 Essential (primary) hypertension; F17.210 Nicotine dependence, cigarettes, uncomplicated; F12.10 Cannabis abuse, uncomplicated; Z88.1 Allergy status to other antibiotic agents; Z90.49 Acquired absence of other specified parts of digestive tract; Z59.00 Homelessness unspecified
CPT/HCPCS: 82962; 93971

== ENCOUNTER 2023-06-08 17:14 | Inpatient (IN) | payer MEDICARE, MEDICAID ==
[~2023-06-08] VITALS: Ht 152.4 cm; Wt 55.0 kg
[~2023-06-08 17:14] MED LIST changes: +ALEN35TA18 PO; +GABA-1250 PO; +HYDR-4798 PO; -INSLANTI SC; -INSLISPI SC; +INSRTEST SC; +LAMO100T44 PO; -LAMO25TA2 PO; +METF-370 PO; -OLAN10IN PO; +OXCA600T3 PO; +OXYB5TAB24 PO; +PANT40TA2 PO; +QUET100T47 PO
[2023-06-08] MEDS: MIDAZOLAM HCL 5 MG/ML-1ML VIAL ONE (17:19)
[2023-06-08] MEDS: MIDAZOLAM HCL 5 MG/ML-1ML VIAL IV ONE (17:22)
[2023-06-08] MEDS: NOREPINEPHRINE 8 MG/250ML KIT 250 ML IV ONE (17:30)
[2023-06-08] MEDS: NOREPINEPHRINE 8 MG/250ML KIT 250 ML IV SCH (17:30)
[2023-06-08 17:45] VITALS: BP 90/36; PULSE 98; RESP 29; O2SAT 97
[2023-06-08] MEDS: DEXTROSE (50%) 50ML SYRG IV ONE ×2 (17:45→20:59)
[2023-06-08] MEDS: SODIUM CHLORIDE 0.9% 500 ML IV ONE (18:00)
[2023-06-08 18:02] LABS: Hemoglobin 9.2 g/dL (12.2-16.2)
[2023-06-08 18:04] LABS: Hematocrit 33.4 % (36.0-46.0); Mean Corpuscular Hemoglobin 25.7 pg (28.0-32.0); Mean Corpuscular Hgb Conc. 27.7 g/dL (32.0-36.0); Mean Corpuscular Volume 92.7 fL (80.0-100.0)
[2023-06-08 18:10] LABS: Amphetamine Screen, Urine Neg (NEGATIVE); Barbiturate Scree,Urine Neg (NEGATIVE); Benzodiazephine Screen, Urine Neg (NEGATIVE); Cannabinoid Screen, Urine Pos (NEGATIVE); Cocaine Screen, Urine Neg (NEGATIVE); Opiate Scree,Urine Pos (NEGATIVE); Phencyclidine Screen, Urine Neg (NEGATIVE)
[2023-06-08 18:13] LABS: Alanine Aminotransferase 65 U/L (7-40); Albumin 2.5 g/dL (3.2-4.8); Alkaline Phosphatase 263 U/L (46-116); Anion Gap 23.00001 (5-15); Aspartate Aminotransferase 255 U/L (13-40); BUN/Creatinine Ratio 35.1 (10.0-20.0); Calcium 8.3 mg/dL (8.7-10.4); Chloride 103 mmol/L (98-107); Glucose 66 mg/dL (74-106); Magnesium 2.6 mg/dL (1.6-2.6); Potassium 4.9 mmol/L (3.5-5.1); Sodium 136 mmol/L (136-145)
[2023-06-08 18:14] LABS: Bilirubin, Total 3.2 mg/dL (0.2-1.0); Total Protein 6.5 g/dL (5.7-8.2)
[2023-06-08 18:18] VITALS: PULSE 121; RESP 28; O2SAT 98
[2023-06-08 18:20] LABS: Urine Bacteria NONE SEEN /hpf (None Seen); Urine Blood Negative /uL (Negative); Urine Clarity HAZY (Clear); Urine Hyaline Cast MANY /lpf (0 - 2); Urine Mucus FEW (None Seen); Urine Protein, UAD 1+ (Negative); Urine Specific Gravity 1.023 (1.001-1.035); Urine WBC 9 /hpf (0 - 5); Urine pH 5.5 (5.0-8.0)
[2023-06-08 18:25] LABS: Urine Color AMBER (Yellow)
[2023-06-08 18:28] LABS: INR 1.83 (0.9-1.15); Partial Thromboplastin Time 68.6 SEC (24.5-34.5); Prothrombin Time 18.5 sec (9.3-11.8)
[2023-06-08 18:31] LABS: Blood Urea Nitrogen 95 mg/dL (9-23); Carbon Dioxide < 10 mmol/L (20-30)
[2023-06-08 18:40] LABS: Red Cell Distribution Width 21.9 % (11.8-14.3); White Blood Cell 43.9 10^3/uL (4.4-10.8)
[2023-06-08 18:41] LABS: Basophils % (manual) 0 (0.0-2.0); Blast Cells 0; Eosinophils % (manual) 0 (0-7); Myelocytes % 0; Promyelocytes % 0; Reactive Lymphocytes 0
[2023-06-08] MEDS: SODIUM CHLORIDE 0.9% 1,000 ML IV ONE (18:45)
[2023-06-08] MEDS: MIDAZOLAM DRIP 50 mg/50mL 50 ML IV SCH (18:58)
[2023-06-08 19:00] LABS: Base Excess -30.7 mmol/L (-2.0-2.0)
[2023-06-08] MEDS: SODIUM BICARBONATE 8.4 % INJ 50ML VIAL IV ONE ×3 (19:03→19:12)
[2023-06-08] MEDS: MIDAZOLAM DRIP 50 mg/50mL 50 ML IV ONE (19:15)
[2023-06-08] MEDS: FUROSEMIDE 20 MG/2 ML VIAL IV ONE (19:30)
[2023-06-08 19:38] LABS: Lactic Acid w/Reflex 18.9 mmol/L (0.4-2.0)
[2023-06-08 19:45] VITALS: PULSE 127; RESP 27; O2SAT 100
[2023-06-08] MEDS: PIPERACILLIN-TAZO 4.5GM 100 ML IV ONE (19:52)
[2023-06-08] MEDS: SODIUM CHLORIDE 0.9% 1,000 ML IVB ONE (19:52)
[2023-06-08] MEDS: SODIUM CHLORIDE 0.9% 500 ML IVB ONE (20:00)
[2023-06-08 20:06] LABS: Band Neutrophils % (manual) 9; Lymphocytes % (manual) 15 (10.0-50.0)
[2023-06-08 20:07] LABS: Metamyelocytes % 4; Monocytes % (manual) 10 (0-12)
[2023-06-08 20:10] LABS: Anisocytosis Slight; Large Platelets FEW; Platelet Estimate Decreased
[2023-06-08 20:11] LABS: Giant Platelets Few
[2023-06-08 20:15] VITALS: BP 81/34; PULSE 115; RESP 28; O2SAT 99
[2023-06-08 20:31] LABS: Base Excess -27.1 mmol/L (-2.0-2.0)
[2023-06-08] MEDS: VASOPRESSIN 20 UNITS in SODIUM CHL 0.9% 99 ML IV SCH (20:40)
[2023-06-08] MEDS: VASOPRESSIN 20 UNIT/ML ONE (20:42)
[2023-06-08] MEDS ORDERED: VASOPRESSIN 40 UNITS in D5W 5% 198 ML IV SCH (20:45)
[2023-06-08 20:52] VITALS: BP 81/34; PULSE 115; RESP 25; O2SAT 99
[2023-06-08] MEDS: SODIUM BICARBONATE 8.4% INJ 50ML SYRINGE ONE (21:00)
[2023-06-08] MEDS: DEXTROSE 50% SYRINGE 50 ML IV ONE (21:00)
[2023-06-08] MEDS: SODIUM CHLORIDE 0.9% 1,000 ML IV SCH (21:15)
[2023-06-08] MEDS ORDERED: DEXTROSE (50%) 50ML SYRG IV PRN (21:15)
[2023-06-08] MEDS ORDERED: IBUPROFEN 100MG/5ML ORAL SUSP 100 MG/5 ML UD GT PRN (21:15)
[2023-06-08] MEDS ORDERED: ONDANSETRON HCL 4 MG/2 ML VIAL IV PRN (21:15)
[2023-06-08] MEDS ORDERED: VANCOMYCIN PER PHARMACY 0 MG IV SCH (21:15)
[2023-06-08] MEDS ORDERED: VANCOMYCIN 1GM/200ML 200 ML IV SCH (21:45)
[2023-06-08] MEDS: FAMOTIDINE (10MG/ML) 2ML VL IV SCH (22:00)
[2023-06-08] MEDS: PHENYLEPHRINE IV 250 ML IV ONE (22:07)
[2023-06-08] MEDS: PHENYLEPHRINE IV 250 ML IV SCH (22:10)
[2023-06-08 22:15] VITALS: BP 57/31; PULSE 104; RESP 27; O2SAT 97
[2023-06-08] MEDS: DexAMETHasone SOD PHOS 10MG/1ML VIAL INJ IV ONE ×2 (22:27→22:30)
[2023-06-08] MEDS: EPINEPHrine HCL 1 MG/10 ML SYRG ONE (22:44)
[2023-06-08] MEDS: SODIUM CHLORIDE 0.9% 250 ML IV ONE (22:45)
[2023-06-08] MEDS: EPINEPHrine HCL 1 MG/10 ML SYRG IV ONE (22:45)
[2023-06-08] MEDS ORDERED: MORPHINE SULFATE INJ 2 MG/ml SYRG IV PRN (23:00)
[2023-06-08] MEDS: SODIUM BICARBONATE 50ML VIAL 150 ML in D5W 5% 1,000 ML IV ONE (23:00)
[2023-06-08] MEDS ORDERED: NITROGLYCERIN 0.4 MG SL TAB SL PRN (23:00)
[2023-06-08] MEDS: ALBUMIN 25% 100 ML IV ONE ×2 (23:27→23:30)
[2023-06-08 23:36] LABS: Hematocrit 14.6 % (36.0-46.0); Mean Corpuscular Hemoglobin 25.4 pg (28.0-32.0); Mean Corpuscular Hgb Conc. 25.4 g/dL (32.0-36.0); Mean Corpuscular Volume 99.9 fL (80.0-100.0); Red Blood Cells 1.46 10^6/uL (4.0-5.20); White Blood Cell 29.7 10^3/uL (4.4-10.8)
[2023-06-08 23:42] LABS: Hemoglobin 3.7 g/dL (12.2-16.2); Red Cell Distribution Width 22.6 % (11.8-14.3)
[2023-06-08 23:43] LABS: Basophils % (manual) 0 (0.0-2.0); Blast Cells 0; Eosinophils % (manual) 0 (0-7); Metamyelocytes % 0; Promyelocytes % 0; Reactive Lymphocytes 0
[2023-06-09] VITALS (35 sets, daily range): BP systolic 0–111; BP diastolic 0–93; PULSE 77–167; RESP 29–35; TEMP 88.7–89.9; O2SAT 98
[2023-06-09] MEDS: InsuLIN REG 1unit/0.01ml Soln (100units/ml) SC SCH
[2023-06-09] MEDS: ACCU-CHEK COMFORT CURVE STRIP VI SCH (00:13)
[2023-06-09] MEDS: EPINEPHrine HCL 250 ML IV SCH (00:20)
[2023-06-09] MEDS: EPINEPHrine HCL 250 ML IV ONE ×2 (00:29→01:25)
[2023-06-09] MEDS: DOPamine 1600MCG/ML D5W 250 ML IV ONE (00:46)
[2023-06-09] MEDS: PHENYLEPHRINE INJ 80 MG in SODIUM CHL 0.9% 242 ML IV SCH (01:15)
[2023-06-09] MEDS: EPINEPHrine HCL INJECTION 16 MG in D5W 5% 234 ML IV SCH (01:15)
[2023-06-09] MEDS: NOREPINEPHRINE BITARTRATE 32 MG in SODIUM CHL 0.9% 218 ML IV SCH (01:15)
[2023-06-09 01:16] LABS: Anisocytosis Slight; Band Neutrophils % (manual) 14; Lymphocytes % (manual) 25 (10.0-50.0); Macrocytosis Slight; Monocytes % (manual) 3 (0-12); Myelocytes % 2; Platelet Estimate Markedly Decreased; Polychromasia Slight
[2023-06-09] MEDS: NOREPINEPHRINE 8 MG/250ML KIT 250 ML IV ONE (01:22)
[2023-06-09] MEDS: NOREPINEPHRINE BITARTRATE 4 ML IV ONE (01:23)
[2023-06-09] MEDS: PHENYLEPHRINE IV 250 ML IV ONE (01:24)
[2023-06-09] MEDS: PHENYLEPHRINE HCL 10 MG/ML VL ONE (01:24)
[2023-06-09] MEDS: EPINEPHrine HCL 0 ML IV ONE (01:31)
[2023-06-09] MEDS: NOREPINEPHRINE BITARTRATE 2 ML IV ONE (01:34)
[2023-06-09] MEDS: EPINEPHRINE HCL IV ONE (02:34)
[2023-06-09] MEDS: VASOPRESSIN 20 UNITS in SODIUM CHL 0.9% 99 ML IV SCH (02:35)
[2023-06-09] MEDS: DOPamine 1600MCG/ML D5W 250 ML IV SCH (03:32)
[2023-06-09] MEDS: VASOPRESSIN 20 UNIT/ML ONE (03:33)
[2023-06-09] MEDS ORDERED: PIPERACILLIN-TAZOB 3.375GM 100 ML IV SCH ×2 (04:00→08:00)
[2023-06-09] MEDS ORDERED: DEXTROSE (50%) 50ML SYRG IV ONE (09:33)
[2023-06-09] MEDS ORDERED: NALOXONE HCL 1MG/ML 2ML SYRINGE IV ONE (09:33)
[2023-06-09] MEDS ORDERED: FLUMAZENIL 0.1 MG/ML INJ 10ML MDV IV ONE (09:33)
== END 2023-06-09 09:34 | DRG 871 ==
LOC: ER 17:14 → EDBD 17:14 → OVERFLOW 22:53 → ICU WEST 22:53
PROVIDERS: ADMIT Nurse Practitioner Family; ATTEND Nurse Practitioner Family
PROC: 05HA33Z Insertion of Infusion Device into Left Brachial Vein, Percutaneous Approach (ICD-10-PCS; principal; 2023-06-08)
PROC: B54NZZA Ultrasonography of Left Upper Extremity Veins, Guidance (ICD-10-PCS; 2023-06-08)
PROC: 5A1935Z Respiratory Ventilation, Less than 24 Consecutive Hours (ICD-10-PCS; 2023-06-08)
PROC: 0BH17EZ Insertion of Endotracheal Airway into Trachea, Via Natural or Artificial Opening (ICD-10-PCS; 2023-06-08)
PROC: 30233N1 Transfusion of Nonautologous Red Blood Cells into Peripheral Vein, Percutaneous Approach (ICD-10-PCS; 2023-06-08)
PROC: 30233K1 Transfusion of Nonautologous Frozen Plasma into Peripheral Vein, Percutaneous Approach (ICD-10-PCS; 2023-06-09)
DX: A41.9 Sepsis, unspecified organism (principal); E43 Unspecified severe protein-calorie malnutrition; G93.41 Metabolic encephalopathy; J96.01 Acute respiratory failure with hypoxia; Z59.00 Homelessness unspecified; E87.20 Acidosis, unspecified; N17.9 Acute kidney failure, unspecified; I48.91 Unspecified atrial fibrillation; K74.60 Unspecified cirrhosis of liver; F20.9 Schizophrenia, unspecified; F41.9 Anxiety disorder, unspecified; I10 Essential (primary) hypertension; M19.90 Unspecified osteoarthritis, unspecified site; F17.210 Nicotine dependence, cigarettes, uncomplicated; E11.21 Type 2 diabetes mellitus with diabetic nephropathy; D63.8 Anemia in other chronic diseases classified elsewhere; Z79.899 Other long term (current) drug therapy; Z68.23 Body mass index [BMI] 23.0-23.9, adult; E11.649 Type 2 diabetes mellitus with hypoglycemia without coma; J44.9 Chronic obstructive pulmonary disease, unspecified; K72.90 Hepatic failure, unspecified without coma; Z88.1 Allergy status to other antibiotic agents; Z89.611 Acquired absence of right leg above knee; F32.A Depression, unspecified
CPT/HCPCS: 36415; 36600; 71045; 80053; 80307; 81001; 82805; 83036; 83605; 83735; 84484; 85007; 85027; 85379; 85610; 85730; 86850; 86900; 86901; 86920; 87070; 87077; 87081; 87186; 87205; 93005; 94002; 96365; 96375; G0378; J0171; J1100; J2250; J2543; J3490; J7060; P9047